=== PATIENT | male | born 1965 | race Caucasian/White ===

== ENCOUNTER → 2018-02-04 | Outpatient (CLI) | payer OTHER ==
[2011-11-05 23:46] VITALS: BP 131/90
[~2018-02-04] MED LIST: CLARITIN10 MG PO; EPI-PEN1 MG/ML MR
== END ==
LOC: RAD 08:25
DX: K76.89 Other specified diseases of liver (principal); R74.8 Abnormal levels of other serum enzymes; E66.9 Obesity, unspecified

== ENCOUNTER → 2018-02-11 | Day surgery (SDC) | payer OTHER ==
[2011-11-05 23:46] VITALS: BP 131/90
== END ==
LOC: MSO 09:19
DX: D50.9 Iron deficiency anemia, unspecified (principal); K31.7 Polyp of stomach and duodenum; D12.4 Benign neoplasm of descending colon; K57.30 Diverticulosis of large intestine without perforation or abscess without bleeding; K92.1 Melena; I10 Essential (primary) hypertension; J45.909 Unspecified asthma, uncomplicated; F17.220 Nicotine dependence, chewing tobacco, uncomplicated; E66.9 Obesity, unspecified
CPT/HCPCS: 00813; A4649; J2704; J3010; J7120